=== PATIENT | male | born 1950 | race Caucasian/White ===

== ENCOUNTER 2020-12-20 16:34 | Emergency (ER) | payer OTHER, MEDICAID, SELFPAY ==
[~2020-12-20] VITALS: Ht 188 cm; Wt 108.9 kg
--- NOTE | 2020-12-20 16:34 | NUR ---
Patient to ER [address]ALL[facility] [facility] for evaluation. Side rails up.
[2020-12-20 16:39] VITALS: BP_SYST 142
--- NOTE | 2020-12-20 17:00 | NUR ---
PT TERE FROM [facility] FOR MEDICAL CLEARANCE TO [facility] INCREASINGLY AGRESSIVE BEHAVIOR. PT [facility] [facility] OF [place]. TO GO TO TO [address] UNDER CARE OF DR. HULL
--- NOTE | 2020-12-20 17:30 | NUR ---
ER DR. ROBLES EXAMINING PT
--- NOTE | 2020-12-20 17:45 | NUR ---
PT ABLE TO VOID, SPECIMEN COLLCTED AND SENT TO LAB
--- NOTE | 2020-12-20 18:30 | NUR ---
LAB FOR BLOOD DRAW
[2020-12-20 18:43] LABS: BILIRUBIN,URINE NEGATIVE (NEGATIVE); BLOOD, URINE 1+ (NEGATIVE); COLOR,URINE YELLOW (YELLOW); GLUCOSE,URINE NEGATIVE (NEGATIVE); KETONES,URINE NEGATIVE (NEGATIVE); LEUKOCYTE ESTERASE ,URINE 1+ (NEGATIVE); NITRITE, URINE NEGATIVE (NEGATIVE); PROTEIN URINE NEGATIVE (NEGATIVE); UROBILINOGEN,URINE 0.2 (0.2-1.0)
[2020-12-20 18:49] LABS: CLARITY/URINE HAZY (CLEAR)
[2020-12-20 18:49] LABS: BASOPHILS % (AUTO) 0.8 % (0.0-2.0); EOSINOPHILS # (AUTO) 0.4 K/uL (0.0-0.4); EOSINOPHILS % (AUTO) 6.1 % (0.0-4.0); HEMATOCRIT 43.7 % (36-54); HEMOGLOBIN 14.9 g/dL (14.0-18.0); LYMPHOCYTES # (AUTO) 1.8 K/uL (1.0-5.5); LYMPHOCYTES % (AUTO) 28.3 % (20.5-51.5); MEAN CORPUSCULAR HEMOGLOBIN 33 pg (27-31); MEAN CORPUSCULAR HGB CONC 34 % (32-36); MEAN CORPUSCULAR VOLUME 96 fL (79.0-98.0); MONOCYTES # (AUTO) 0.7 K/uL (0.0-1.0); MONOCYTES % (AUTO) 11.2 % (1.7-9.3); NEUTROPHILS # (AUTO) 3.4 K/uL (1.8-7.7); NEUTROPHILS % (AUTO) 53.6 % (40.0-70.0); PLATELET COUNT (AUTO) 212 K/uL (130-430); RED BLOOD CELL COUNT(AUTO) 4.57 MIL/uL (4.2-6.2); RED CELL DISTRIBUTION WIDTH 14.2 % (9.0-15.0); WHITE BLOOD COUNT (AUTO) 6.3 K/uL (4.8-10.8)
[2020-12-20 18:56] LABS: BARBITURATE, URINE NEGATIVE (NEG <=200); METHAMPHETAMINES SCREEN,URINE NEGATIVE (NEG <=500); URINE AMPHETAMINE NEGATIVE (NEG <=500)
[2020-12-20 18:57] LABS: BENZODIAZEPINE, URINE POSITIVE (NEG <=150); CANNABINOID, URINE NEGATIVE (NEG <=50); COCAINE, URINE NEGATIVE (NEG <=150); OPIATE, URINE NEGATIVE (NEG <=100); PHENCYCLIDINE SCREEN,URINE NEGATIVE (NEG <=25); UR TRICYCLIC ANTIDEPRESSANTS NEGATIVE (NEG <=300); URINE METHADONE NEGATIVE (NEG <=200); URINE OXYCODONE SCREEN POSITIVE (NEG <=100); URINE PROPOXYPHENE SCREEN NEGATIVE (NEG <=300)
--- NOTE | 2020-12-20 19:10 | NUR ---
REPORT GIVEN TO AMY EVANS FOR CONTINUING CARE
[2020-12-20 19:20] LABS: ANION GAP 9 (5-15); CALCIUM 8.6 mg/dL (8.4-11.0); CHLORIDE 108 mmol/L (98-107); CREATININE 1.05 mg/dL (0.55-1.30); GLUCOSE 101 mg/dL (70-99); POTASSIUM 4.3 mmol/L (3.5-5.1); SODIUM SERUM 140 mmol/L (136-145); UREA NITROGEN, BLOOD 18 mg/dL (8-21)
[2020-12-20 19:27] LABS: ALANINE AMINOTRANSFERASE 36 U/L (12-78); ALBUMIN 3.3 g/dL (3.4-4.8); ASPARTATE AMINOTRANSFERASE 27 U/L (10-37); TOTAL BILIRUBIN 0.3 mg/dL (0.0-1.0)
[2020-12-20 19:28] LABS: BACTERIA,URINE FEW /HPF (None Seen); WBC,URINE 50-80 /HPF (0-3)
[2020-12-20 19:29] LABS: MUCUS,URINE None Seen /LPF (None Seen)
--- NOTE | 2020-12-20 19:30 | NUR ---
Spoke with Chavez at [facility] regarding transfer of patient to their facility. Patient is supposed to go to room 61B however expressed concerns of nursing care due to lack of staffing and can only accept patient tomorrow after 0700hrs. Patient will eventually go back to [facility] once medically cleared. Patient can go straight to [facility] tomorrow as per staff Chavez.
[2020-12-20 19:39] LABS: ALCOHOL, BLOOD < 3 mg/dL (<10)
[2020-12-20 19:40] LABS: ACETAMINOPHEN < 1 ug/mL (1-30)
[2020-12-20 19:59] LABS: CHOLESTEROL 131 mg/dL (<200); HDL CHOLESTEROL 46 mg/dL (>45); LDL CHOLESTEROL 74 mg/dL (<100); TRIGLYCERIDES 95 mg/dL (30-150)
[2020-12-20] MEDS ORDERED: SULF1TAB48 PO (20:02)
[2020-12-20] MEDS: SULFAMETHOXAZOLE/TRIMETHOPR DS 1 TABLET PO ONE (20:14)
--- NOTE | 2020-12-20 21:05 | NUR ---
Spoke with Roseann, renal case manager of . She will accept patient back to facility and will contact to [facility] tomorrow morning.
[2020-12-20 21:19] VITALS: BP_SYST 142
--- NOTE | 2020-12-20 21:19 | NUR ---
Patient will transfer back to [facility] via [facility] with [facility].
== END 2020-12-20 21:19 | disposition home or self-care (01) ==
LOC: SED 16:34
DX: N39.0 Urinary tract infection, site not specified (principal); R45.6 Violent behavior; I10 Essential (primary) hypertension; Z88.5 Allergy status to narcotic agent; Z88.6 Allergy status to analgesic agent; Z20.822 Contact with and (suspected) exposure to COVID-19; Z79.899 Other long term (current) drug therapy
CPT/HCPCS: 36415; 80053; 80061; 80307; 81000; 83036; 85025; 87086; 87426; 99283; G0480; G0481; G0482

== ENCOUNTER 2021-02-22 12:07 | Emergency (ER) | payer OTHER, MEDICAID ==
[~2021-02-22] VITALS: Ht 185.4 cm; Wt 90.7 kg
[~2021-02-22 12:07] MED LIST: SULF1TAB48 PO
--- NOTE | 2021-02-22 12:10 | NUR ---
Placed in room 6 . Placed on cardiac nurse, blood pressure machine and pulse oximeter. To gown for exam. Side rails up. Report given to AMY Parmar.
[2021-02-22 12:11] VITALS: BP_SYST 152
[2021-02-22] MEDS ORDERED: HYDR-3917 PO (13:05)
[2021-02-22 13:56] LABS: BASOPHILS % (AUTO) 1.2 % (0.0-2.0); EOSINOPHILS # (AUTO) 0.3 K/uL (0.0-0.4); HEMATOCRIT 38.8 % (36-54); HEMOGLOBIN 13.5 g/dL (14.0-18.0); LYMPHOCYTES % (AUTO) 27.8 % (20.5-51.5); MEAN CORPUSCULAR HEMOGLOBIN 33 pg (27-31); MEAN CORPUSCULAR HGB CONC 35 % (32-36); MEAN CORPUSCULAR VOLUME 96 fL (79.0-98.0); MONOCYTES # (AUTO) 0.5 K/uL (0.0-1.0); MONOCYTES % (AUTO) 12.6 % (1.7-9.3); NEUTROPHILS # (AUTO) 1.9 K/uL (1.8-7.7); NEUTROPHILS % (AUTO) 50.4 % (40.0-70.0); PLATELET COUNT (AUTO) 148 K/uL (130-430); RED BLOOD CELL COUNT(AUTO) 4.06 MIL/uL (4.2-6.2); RED CELL DISTRIBUTION WIDTH 14.6 % (9.0-15.0); WHITE BLOOD COUNT (AUTO) 3.7 K/uL (4.8-10.8)
[2021-02-22 13:57] LABS: BILIRUBIN,URINE NEGATIVE (NEGATIVE); BLOOD, URINE NEGATIVE (NEGATIVE); CLARITY/URINE CLEAR (CLEAR); COLOR,URINE YELLOW (YELLOW); GLUCOSE,URINE NEGATIVE (NEGATIVE); KETONES,URINE NEGATIVE (NEGATIVE); LEUKOCYTE ESTERASE ,URINE 1+ (NEGATIVE); NITRITE, URINE NEGATIVE (NEGATIVE); PH,URINE 8.5 (5.0-8.0); PROTEIN URINE NEGATIVE (NEGATIVE)
[2021-02-22 14:07] LABS: BACTERIA,URINE FEW /HPF (None Seen); MUCUS,URINE 1+ /LPF (None Seen); WBC,URINE 20-50 /HPF (0-3)
[2021-02-22 14:09] LABS: BARBITURATE, URINE NEGATIVE (NEG <=200); BENZODIAZEPINE, URINE NEGATIVE (NEG <=150); CANNABINOID, URINE NEGATIVE (NEG <=50); COCAINE, URINE NEGATIVE (NEG <=150); METHAMPHETAMINES SCREEN,URINE NEGATIVE (NEG <=500); OPIATE, URINE NEGATIVE (NEG <=100); PHENCYCLIDINE SCREEN,URINE NEGATIVE (NEG <=25); UR TRICYCLIC ANTIDEPRESSANTS POSITIVE (NEG <=300); URINE AMPHETAMINE NEGATIVE (NEG <=500); URINE METHADONE NEGATIVE (NEG <=200); URINE OXYCODONE SCREEN POSITIVE (NEG <=100); URINE PROPOXYPHENE SCREEN NEGATIVE (NEG <=300)
[2021-02-22 14:13] LABS: ANION GAP 4 (5-15); CALCIUM 8.3 mg/dL (8.4-11.0); CHLORIDE 105 mmol/L (98-107); CREATININE 0.94 mg/dL (0.55-1.30); GLUCOSE 97 mg/dL (70-99); POTASSIUM 4.4 mmol/L (3.5-5.1); SODIUM SERUM 138 mmol/L (136-145); UREA NITROGEN, BLOOD 15 mg/dL (8-21)
[2021-02-22] MEDS ORDERED: NITROFURANTOIN MONOHYD/M-CRYST 100 MG CAPSULE (MacroBID) PO ONE (15:00)
[2021-02-22 16:15] LABS: ALANINE AMINOTRANSFERASE 32 U/L (12-78); ALBUMIN 3.1 g/dL (3.4-4.8); ASPARTATE AMINOTRANSFERASE 23 U/L (10-37); TOTAL BILIRUBIN 0.5 mg/dL (0.0-1.0)
[2021-02-22 23:49] LABS: ACETAMINOPHEN < 1 ug/mL (1-30); ALCOHOL, BLOOD < 3 mg/dL (<10)
[2021-02-23 00:01] LABS: CHOLESTEROL 112 mg/dL (<200); HDL CHOLESTEROL 40 mg/dL (>45); LDL CHOLESTEROL 65 mg/dL (<100); TRIGLYCERIDES 92 mg/dL (30-150)
== END 2021-02-22 16:10 ==
LOC: SED 12:07
DX: R45.6 Violent behavior (principal); R45.851 Suicidal ideations; I10 Essential (primary) hypertension; Z88.5 Allergy status to narcotic agent; Z88.6 Allergy status to analgesic agent; Z79.899 Other long term (current) drug therapy; Z20.822 Contact with and (suspected) exposure to COVID-19
CPT/HCPCS: 36415; 80053; 80061; 80307; 81000; 83036; 85025; 87081; 87086; 87426; 99285; G0480; G0481; G0482